=== PATIENT | male | born 1995 | race African-American/Black ===

== ENCOUNTER 2017-12-29 17:17 | Emergency (ER) | payer OTHER ==
[~2017-12-29] VITALS: Ht 188 cm; Wt 80.0 kg
[2017-12-29 17:25] VITALS: BP 106/55; PULSE 80; RESP 12; TEMP 98.7; O2SAT 99
[2017-12-29] MEDS ORDERED: METHOCARBAMOL 500 MG TAB PO ONE (18:45)
[2017-12-29] MEDS ORDERED: IBUPROFEN 800 MG TAB PO ONE (18:45)
[2017-12-29 18:46] VITALS: BP 115/77; PULSE 64; RESP 18; O2SAT 100
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
[2017-12-29] MEDS ORDERED: ROBA500T PO (19:35)
[2017-12-29] MEDS ORDERED: DICL75TA PO (19:35)
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
== END 2017-12-29 20:21 | disposition home or self-care (01) ==
LOC: NEPC 17:17
DX: S39.012A Strain of muscle, fascia and tendon of lower back, initial encounter (principal); V43.62XA Car passenger injured in collision with other type car in traffic accident, initial encounter
CPT/HCPCS: 72110; 99283